=== PATIENT | female | born 1950 | race Caucasian/White ===

== ENCOUNTER 2018-10-08 06:45 | Day surgery (SDC) | payer BC, OTHER ==
--- NOTE | 2018-10-07 15:57 | RAD REPORT ---
EXAM DESCRIPTION: RAD - Chest Pa And Lat (2 Views) - 10/07/2018 3:50 pm CLINICAL HISTORY: left heart cath Chest pain. COMPARISON: <Comparisons> FINDINGS: The lungs are clear. The heart is normal in size. No displaced fractures. IMPRESSION: No acute or concerning finding suspected.
[2018-10-07 16:22] LABS: Absolute Lymphocytes (CBC) 2.1 K/uL (0.7-4.9); Basophils % 0.4 % (0-1.3); Hematocrit 40.5 % (36.0-45.0); Lymphocytes % 24.4 % (15.3-44.8); MPV 10.6 fL (7.6-11.3); RBC Red Blood Cell Count 4.64 M/uL (3.86-4.86)
[2018-10-07 16:26] LABS: Protime INR 0.96
[2018-10-07 16:37] LABS: Potassium 4.3 mmol/L (3.5-5.1)
--- OUTSIDE RECORDS SUMMARY | 2018-10-08 06:47 | XMS REPORT | Continuity of Care Document ---
:1950 Author Organization [facility] [place] Information [place] Care Team Providers Name Role Phone [facility] Sarwat Best Doctors Unavailable Unavailable Problems Problem Status Onset Classification Date Comments Source Date Reported Discharge 10/03/2015 [facility] Diagnosis: 6 Cough BAD COUGH Active [facility] [place] Medications Medication Details Route Status Patient Ordering Order Source Instructions Provider Date predniSONE 20 60 mg=3 Active 09/30/19 [place] mg oral tab, PO, 16 tablet Daily, Take 3 tablets for 60 mg dose, X 5 day, # 15 tab, 0 Refill(s) Allergies, Adverse Reactions, Alerts No Known Medication Allergies Immunizations No Data Provided for This Section Results No Data Provided for This Section Pathology Reports No Data Provided for This Section Diagnostic Reports Report Value Date Source Chest 2 views DX Patient Name: SAMEER ALCAZAR 09/30/2015 [facility] : 1950; Age: 64 years y/o Female MR: [id number] * CHEST, 2 views HISTORY: Coughing, ; COMPARISON: None TECHNIQUE: Frontal and lateral radiographs of the chest were obtained. FINDINGS: The lungs are clear. There are no pleural effusions. The heart and pulmonary vasculature are within normal limits. There are mild atherosclerotic changes involving the thoracic aorta. The regional skeleton is unremarkable. IMPRESSION: 1. No active disease. SL: [id number] Consultation Notes No Data Provided for This Section Discharge Summaries No Data Provided for This Section History and Physicals No Data Provided for This Section Vital Signs Vital Sign Value Date Comments Source Heart Rate 84 09/30/2015 [facility] Respitory Rate 16 09/30/2015 [facility] Systolic (mm Hg) 140 09/30/2015 [facility] Diastolic (mm Hg) 71 09/30/2015 [facility] Weight 97.727 09/30/2015 [facility] BMI Calculated 34.77 09/30/2015 [facility] Height 167.64 cm 09/30/2015 [facility] Temperature Oral (F) 97.8 F 09/30/2015 [facility] Respitory Rate 16 09/30/2015 [facility] Systolic (mm Hg) 176 09/30/2015 [facility] Diastolic (mm Hg) 76 09/30/2015 [facility] Heart Rate 86 09/30/2015 [facility] Encounters Location Location Encounter Encounter Reason Attending ADM DC Status Source Details Type Number For Provider Date Date [facility] [id number] Jac 09/29 09/29 Sarwat Hamlin /2015 [facility] Procedures No Data Provided for This Section Assessment and Plan No Data Provided for This Section Plan of Care No Data Provided for This Section Social History Social History Date Source Social History TypeResponse 09/30/2015 [facility] Smoking Status Former smoker; Exposure to Tobacco Smoke None; Cigarette Smoking Last 365 Days No; Reg Smoking Cessation Counseling No Family History No Data Provided for This Section Advance Directives No Data Provided for This Section Functional Status No Data Provided for This Section
--- OUTSIDE RECORDS SUMMARY | 2018-10-08 06:47 | XMS REPORT | Summary of Care ---
:1950 Author Organization [facility] Address [id number] [place] [id number]- Encounter HQ Melanie_steve(FIN) [id number] Date(s): 09/30/15 - 09/30/[address] [phone] Discharge Diagnosis: Cough Discharge Disposition: Home or Self Care Attending Physician: Jac Hamlin MD Vital Signs Most recent to oldest [Reference Range]: 1 2 Height 167.64 cm (09/30/15 12:41 PM) Temperature Oral [96.4-99.1 DegF] 97.8 DegF (09/30/15 12:41 PM) Blood Pressure [90-140/60-90 mmHg] 140/71 mmHg 176/76 mmHg (09/30/15 1:50 PM) *HI* (09/30/15 12:41 PM) Respiratory Rate [14-20 BRMIN] 16 BRMIN 16 BRMIN (09/30/15 1:50 PM) (09/30/15 12:41 PM) Peripheral Pulse Rate [60-100 bpm] 84 bpm 86 bpm (09/30/15 1:50 PM) (09/30/15 12:41 PM) Weight 97.727 kg (09/30/15 12:41 PM) Body Mass Index 34.77 m2 (09/30/15 12:41 PM) Problem List No data available for this section Allergies, Adverse Reactions, Alerts Substance Reaction Severity Status NKDA Active Medications predniSONE 20 mg oral tablet 60 mg=3 tab, PO, Daily, Take 3 tablets for 60 mg dose, X 5 day, # 15 tab, 0 Refill(s) Start Date: 09/30/15 Stop Date: 10/05/15 Status: Ordered Results No data available for this section Immunizations No data available for this section Procedures No data available for this section Social History Social History Type Response Smoking Status Former smoker; Exposure to Tobacco Smoke None; Cigarette Smoking Last 365 Days No; Reg Smoking Cessation Counseling No Assessment and Plan No data available for this section
[2018-10-08] MEDS ORDERED: NA CHLORIDE 0.9% 500 ML ONE (07:02)
[2018-10-08] MEDS ORDERED: LIDOCAINE 1% MPF 30 ML VIAL ONE (07:04)
[2018-10-08] MEDS ORDERED: HEPA 1000U/500MLS 2,000 UNIT/1,000 ML BAG IV ONE (07:04)
[2018-10-08] MEDS ORDERED: HEPARIN 5000 UNIT/ML 1 ML VIAL ONE (07:43)
[2018-10-08] MEDS ORDERED: FENTANYL CITR 100 MCG/2 ML ONE ×3 (07:43→12:53)
[2018-10-08] MEDS ORDERED: MIDAZOLAM HCL 2 MG/2 ML INJ ONE ×4 (07:43→09:47)
[2018-10-08] MEDS ORDERED: NICARDIPINE HCL 25 MG/10 ML IV ONE (07:44)
[2018-10-08] MEDS ORDERED: ATROPINE SULF 1 MG/10 ML SYR IV ONE (07:44)
[2018-10-08] MEDS ORDERED: NA CHLORIDE 0.9% 50 ML ONE ×2 (07:44→08:46)
[2018-10-08] MEDS ORDERED: NITROGLYCERIN 100 MCG/ML SYR (for cath lab use only) IV ONE (07:44)
[2018-10-08] MEDS ORDERED: NITROGLYCERIN/D5W 25 MG/250 ML BTL IV ONE (07:44)
[2018-10-08] MEDS ORDERED: HYDRALAZINE HCL 20 MG/ML VIAL ONE ×2 (08:18→10:21)
[2018-10-08] MEDS ORDERED: HEPA 1000U/500MLS 1,000 UNIT/500 ML BAG IV ONE (08:45)
[2018-10-08] MEDS ORDERED: PRASUGREL (EFFIENT) 10 MG TAB ONE (09:41)
[2018-10-08] MEDS ORDERED: METOPROLOL TARTRATE 5 MG/5 ML INJ IV ONE (10:11)
[2018-10-08] MEDS ORDERED: ACETAMINOPHEN 500 MG TAB PO PRN (10:38)
[2018-10-08] MEDS ORDERED: FENTANYL CITR 100 MCG/2 ML IV PRN (10:39)
[2018-10-08] MEDS ORDERED: ONDANSETRON 4 MG/2 ML VIAL IV ONE (11:36)
[2018-10-08] MEDS ORDERED: ACETAMINOPHEN 500 MG TAB ONE (13:18)
[2018-10-08] MEDS ORDERED: MORPHINE 2 MG/ML SYR IV PRN (18:47)
[2018-10-08] MEDS ORDERED: MORPHINE 4 MG/ML SYR IV PRN (18:52)
[2018-10-08] MEDS ORDERED: ATORVASTATIN 80 MG TAB PO SCH (21:00)
[2018-10-08] MEDS ORDERED: ZOLPIDEM TARTRATE 5 MG TABLET PO SCH (21:00)
--- NOTE | 2018-10-08 21:51 | OP ---
Surgeon: Johnson Lundberg MD Inspector [employer]: Shasta Deleon. Identification: 67-year-old woman. Procedure: Left heart catheterization with coronary angiography, percutaneous coronary intervention of a mid right coronary artery with a 3.0 x 16 Synergy stent. Successful dilation of a 99% lesion. Procedure Findings: The patient had a 60% stenosis in the distal posterolateral branch, not felt to be causing her symptoms. Her right coronary had mild narrowing of its ostium and had a very high ant erior takeoff, proved to be difficult to cannulate, but the mid right coronary had a 99% stenosis rig ht at the bifurcation of right ventricular branch and after angioplasty, there was 0% residual stenos is, MANOLO grade 3 normal flow to the distal part of the artery. An LV gram was not done nor were left ventricular pressures taken. Procedure In Detail: The patient had unstable angina symptoms. She was brought to the cardiac receiver/laborer in a fasting state, prepared and draped in the usual sterile fashion. She had given us informed consent before. Right radial approach was used initially. We were successful in cannulating the rig ht radial artery. We anesthetized the tissues with 1% lidocaine, cannulated the artery with a 21-gau ge needle, a 0.021 inch guidewire, placed the Terumo sheath, flushed the sheath, and gave a radial co cktail. We were able to guide a TIG catheter into the ascending aorta. We took pictures of the righ t coronary and left coronary with this, inadequate pictures were done of the right. The left coronar y pictures were fine. The catheter took a very unfavorable bend at the junction of the innominate ar flower with the aorta and made catheter manipulation very difficult. We attempted to cannulate the art ra with a 3DRC AR1 and we were then unable to get good pictures. We decided to put a stent and we c ould not cannulate the ostium of it, so we stopped everything, closed the right radial arteriotomy, t urned our direction towards the right femoral artery. We were able to enter the right femoral artery , but the 18-gauge needle, cannulated with a J-wire and then we put a 6-Bengali sheath in, we were abl e to guide an Amplatz AR1 catheter into the ascending aorta. We were able to cannulate the vessel os tium. The vessel ostium had a 20% stenosis right at the bifurcation of the RV branch a 99% stenosis proved difficult to cross with a wire, but once crossed with a wire, the stent went across easily and we deployed it at 12 atmospheres, ended up with an excellent angiographic result. All catheters wer e removed over a J-wire to keep them straight. A sheath shot was done of the right femoral artery. Adequate anatomy was seen there for us to put an Angio-Seal device to close the arteriotomy once the activated clotting time is below 250. Estimated Blood Loss: 60 mL. TRACEY/JUAN MIGUEL Voice ID: [id number] Report ID: [id number]
[2018-10-09 04:36] LABS: Hematocrit 36.6 % (36.0-45.0); MPV 10.7 fL (7.6-11.3); RBC Red Blood Cell Count 4.24 M/uL (3.86-4.86)
[2018-10-09 04:46] LABS: Potassium 3.6 mmol/L (3.5-5.1)
[2018-10-09] MEDS ORDERED: CLOPIDOGREL 75 MG TABLET PO SCH (09:00)
[2018-10-09] MEDS ORDERED: LOSARTAN POTASSIUM 50 MG TABLET PO SCH (09:00)
[2018-10-09] MEDS ORDERED: ASPIRIN EC 81 MG TAB PO SCH (09:00)
[2018-10-09] MEDS ORDERED: DILTIAZEM HCL 120 MG SR CAP PO SCH (09:00)
--- NOTE | 2018-10-10 05:53 | DS ---
Date of Discharge: 10/09/2018 Hospital Course: Ms. Harris came to the hospital with orders for an elective cardiac cath and possible stent because of unstable angina symptoms. She was found to have critical RCA stenosis. This was s tented successfully. She has some other lesions that are not considered critical. They were not candelario nted. Her left ventricular ejection fraction is normal according to noninvasive studies done as an o utpatient. Overnight, she has done well. She had a headache, treated with morphine. Today, she fee ls fine and her blood pressure is under good control. Discharge Medications: She is being discharged taking atorvastatin 80, aspirin 81, Plavix 75, Cardiz em CD 240, losartan 100, and colchicine to use as needed. Discharge Instructions: She will have a followup with me in 2 weeks. Her prescriptions have been fo rwarded to the [facility] pharmacy and printed. DELVIS Voice ID: [id number] Report ID: [id number]
== END 2018-10-09 08:45 | disposition home or self-care (01) ==
LOC: CCL 06:45 → 4TH 11:02 → CCL 10-09 08:45
PROVIDERS: ATTEND Internal Medicine
DX: I25.110 Atherosclerotic heart disease of native coronary artery with unstable angina pectoris (principal); I10 Essential (primary) hypertension; E78.5 Hyperlipidemia, unspecified; Z88.8 Allergy status to other drugs, medicaments and biological substances; Z87.891 Personal history of nicotine dependence; Z82.49 Family history of ischemic heart disease and other diseases of the circulatory system
CPT/HCPCS: 85025; 80048 ×2; 36415 ×2; 85610; 85347 ×5; 85730; 85027; 71046; 93454; C1893; C1760; C1725; C9600; J0360 ×2; J1644; J2250 ×4; J3010 ×3; J0583 ×2; J2405